=== PATIENT | male | born 1970 | race African-American/Black ===

== ENCOUNTER 2023-07-08 16:07 | Inpatient (IN) | payer MEDICAID, OTHER ==
[~2023-07-08] VITALS: Ht 177.8 cm; Wt 63.6 kg
[2023-07-08 16:44] LABS: Basophils # (auto) 0 10 ^3/uL (0-0.2); Basophils % (auto) 0.4 % (0.0-2.0); Eosinophils # (auto) 0 10 ^3/uL (0-0.8); Eosinophils % (auto) 0.1 % (0.0-7.0); Hematocrit 48.1 % (41.0-53.0); Hemoglobin 15.8 g/dL (13.5-17.5); Lymphocytes # (auto) 1.5 10 ^3/uL (0.4-5.4); Lymphocytes % (auto) 21.3 % (10.0-50.0); Mean Corpuscular Hemoglobin 31.2 pg (28.0-32.0); Mean Corpuscular Hgb Conc. 32.9 g/dL (32.0-36.0); Mean Corpuscular Volume 94.9 fL (80.0-100.0); Monocytes # (auto) 0.6 10 ^3/uL (0-1.3); Monocytes % (auto) 8.2 % (0.0-12.0); Neutrophils # (auto) 5.1 10 ^3/uL (1.6-8.6); Nucleated Red Blood Cells % 0.2 %; Red Blood Cells 5.07 10^6/uL (4.5-5.90); Red Cell Distribution Width 14.9 % (11.8-14.3); White Blood Cell 7.2 10^3/uL (4.4-10.8)
[2023-07-08 17:11] LABS: Alanine Aminotransferase 108 U/L (7-40); Albumin 3.9 g/dL (3.2-4.8); Alkaline Phosphatase 105 U/L (46-116); Anion Gap 10 (5-15); Aspartate Aminotransferase 64 U/L (13-40); BUN/Creatinine Ratio 11.5 (10.0-20.0); Blood Urea Nitrogen 14 mg/dL (9-23); Calcium 9.3 mg/dL (8.5-10.1); Carbon Dioxide 25 mmol/L (20-30); Chloride 105 mmol/L (98-107); Glucose 113 mg/dL (74-106); Potassium 4.4 mmol/L (3.5-5.1); Sodium 140 mmol/L (136-145)
[2023-07-08 17:12] LABS: Bilirubin, Total 0.9 mg/dL (0.2-1.0); INR 1.05 (0.9-1.15); Partial Thromboplastin Time 27.6 SEC (24.5-34.5); Total Protein 5.6 g/dL (5.7-8.2)
[2023-07-08 20:10] VITALS: PULSE 101; RESP 28; O2SAT 97
[2023-07-08] MEDS: ASPirin 81 mg TAB PO ONE (20:31)
[2023-07-08] MEDS: FUROSEMIDE 40 MG/4 ML VIAL IV ONE (20:33)
[2023-07-08] MEDS: HEPARIN SODIUM (PORCINE) 5000 UNITS/ML 1ML VIAL IV ONE (20:36)
[2023-07-08 20:41] LABS: Urine Bacteria NONE SEEN /hpf (None Seen); Urine Blood 1+ /uL (Negative); Urine Clarity Clear (Clear); Urine Color Yellow (Yellow); Urine Hyaline Cast FEW /lpf (0 - 2); Urine Protein, UAD 1+ (Negative); Urine Specific Gravity 1.026 (1.001-1.035); Urine WBC 1 /hpf (0 - 3); Urine pH 6.5 (5.0-8.0)
[2023-07-08] MEDS: HEPARIN DRIP/D5W 100UNITS/ML 250 ML IV SCH (20:42)
[2023-07-08] MEDS ORDERED: ONDANSETRON HCL 4 MG/2 ML VIAL IV PRN (22:00)
[2023-07-08] MEDS ORDERED: NITROGLYCERIN 0.4 MG SL TAB SL PRN (22:00)
[2023-07-08] MEDS ORDERED: TEMAZEPAM 15 MG CAP PO PRN (22:00)
[2023-07-08] MEDS ORDERED: CARVEDILOL 3.125 MG TAB PO SCH (22:00)
[2023-07-08] MEDS ORDERED: MORPHINE SULFATE INJ 2 MG/ml SYRG IV PRN (22:00)
[2023-07-08] MEDS ORDERED: ATORVASTATIN 20 MG TAB PO SCH (22:00)
[2023-07-08] MEDS ORDERED: ACETAMINOPHEN 325 MG TAB PO PRN (22:00)
[2023-07-08 22:35] LABS: Triglycerides 90 mg/dL (< 150)
[2023-07-08 22:36] LABS: LDL Cholesterol 128 mg/dL (< 100)
[2023-07-08 22:37] LABS: HDL Cholesterol 57 mg/dL (40-59)
[2023-07-08 22:38] LABS: Cholesterol 190 mg/dL (< 200)
[2023-07-09] VITALS (9 sets, daily range): BP systolic 133–143; BP diastolic 54–66; PULSE 72–96; RESP 14–20; TEMP 97.7–97.9; O2SAT 99–100
[2023-07-09] MEDS: ATORVASTATIN 20 MG TAB PO SCH ×2 (00:44→21:28)
[2023-07-09] MEDS: CARVEDILOL 3.125 MG TAB PO SCH (00:45)
[2023-07-09 03:59] LABS: Basophils # (auto) 0.1 10 ^3/uL (0-0.2); Basophils % (auto) 1.1 % (0.0-2.0); Eosinophils # (auto) 0 10 ^3/uL (0-0.8); Eosinophils % (auto) 0.1 % (0.0-7.0); Hematocrit 47.8 % (41.0-53.0); Hemoglobin 15.9 g/dL (13.5-17.5); Lymphocytes # (auto) 2.3 10 ^3/uL (0.4-5.4); Mean Corpuscular Hemoglobin 31.5 pg (28.0-32.0); Mean Corpuscular Hgb Conc. 33.2 g/dL (32.0-36.0); Mean Corpuscular Volume 94.8 fL (80.0-100.0); Monocytes # (auto) 0.9 10 ^3/uL (0-1.3); Monocytes % (auto) 10.8 % (0.0-12.0); Neutrophils # (auto) 4.7 10 ^3/uL (1.6-8.6); Nucleated Red Blood Cells % 0.2 %; Red Blood Cells 5.04 10^6/uL (4.5-5.90); Red Cell Distribution Width 14.5 % (11.8-14.3); White Blood Cell 7.9 10^3/uL (4.4-10.8)
[2023-07-09 04:13] LABS: INR 1.09 (0.9-1.15); Partial Thromboplastin Time 45.3 SEC (24.5-34.5); Prothrombin Time 11.4 sec (9.3-11.8)
[2023-07-09 04:16] LABS: Chloride 106 mmol/L (98-107); Potassium 4.6 mmol/L (3.5-5.1); Sodium 140 mmol/L (136-145)
[2023-07-09 04:17] LABS: Anion Gap 7 (5-15); Carbon Dioxide 27 mmol/L (20-30)
[2023-07-09 04:18] LABS: Calcium 9.3 mg/dL (8.5-10.1)
[2023-07-09 04:23] LABS: BUN/Creatinine Ratio 6.5 (10.0-20.0); Blood Urea Nitrogen 9 mg/dL (9-23); Glucose 93 mg/dL (74-106)
[2023-07-09 06:15] LABS: Giant Platelets Few; Platelet Estimate Adequate
[2023-07-09] MEDS: FUROSEMIDE 20 MG/2 ML VIAL IV SCH (07:02)
[2023-07-09] MEDS: ASPirin 81 mg TAB PO SCH (11:13)
[2023-07-09] MEDS: LISINOPRIL 10 MG TAB PO SCH (11:13)
[2023-07-09] MEDS ORDERED: ASPI-543 PO (11:40)
[2023-07-09] MEDS ORDERED: METO25TA5 PO (11:40)
[2023-07-09] MEDS ORDERED: LISI20TA56 PO (11:40)
[2023-07-09 12:22] LABS: Amphetamine Screen, Urine Neg (NEGATIVE)
[2023-07-09 12:23] LABS: Benzodiazephine Screen, Urine Neg (NEGATIVE)
[2023-07-09 12:24] LABS: Barbiturate Scree,Urine Neg (NEGATIVE); Cannabinoid Screen, Urine Pos (NEGATIVE); Cocaine Screen, Urine Neg (NEGATIVE); Opiate Scree,Urine Neg (NEGATIVE); Phencyclidine Screen, Urine Neg (NEGATIVE)
[2023-07-09] MEDS: IPRATROPIUM BROM 0.5 MG/2.5ML INH SOL NEB SCH (12:38)
[2023-07-09 12:42] LABS: INR 1.11 (0.9-1.15); Partial Thromboplastin Time 59.6 SEC (24.5-34.5); Prothrombin Time 11.6 sec (9.3-11.8)
[2023-07-09 19:04] LABS: INR 1.1 (0.9-1.15); Partial Thromboplastin Time 65.5 SEC (24.5-34.5); Prothrombin Time 11.5 sec (9.3-11.8)
[2023-07-09] MEDS ORDERED: diphenhdrAMINE HCL 50 MG/1 ML VL IV ONE (20:30)
[2023-07-10] VITALS (15 sets, daily range): BP systolic 128–140; BP diastolic 49–60; PULSE 57–93; RESP 17–20; TEMP 97.6–98; O2SAT 95–100
[2023-07-10 00:54] LABS: INR 1.12 (0.9-1.15); Partial Thromboplastin Time 64.2 SEC (24.5-34.5); Prothrombin Time 11.7 sec (9.3-11.8)
[2023-07-10 05:57] LABS: Basophils # (auto) 0 10 ^3/uL (0-0.2); Basophils % (auto) 0.8 % (0.0-2.0); Eosinophils # (auto) 0 10 ^3/uL (0-0.8); Eosinophils % (auto) 0.7 % (0.0-7.0); Hematocrit 46.2 % (41.0-53.0); Hemoglobin 15.1 g/dL (13.5-17.5); Lymphocytes # (auto) 1.8 10 ^3/uL (0.4-5.4); Mean Corpuscular Hemoglobin 31.2 pg (28.0-32.0); Mean Corpuscular Hgb Conc. 32.6 g/dL (32.0-36.0); Mean Corpuscular Volume 95.5 fL (80.0-100.0); Monocytes # (auto) 0.6 10 ^3/uL (0-1.3); Monocytes % (auto) 10.5 % (0.0-12.0); Neutrophils # (auto) 3.2 10 ^3/uL (1.6-8.6); Nucleated Red Blood Cells % 0.1 %; Red Blood Cells 4.84 10^6/uL (4.5-5.90); Red Cell Distribution Width 14.7 % (11.8-14.3); White Blood Cell 5.7 10^3/uL (4.4-10.8)
[2023-07-10] MEDS: FUROSEMIDE 20 MG TAB PO SCH (06:00)
[2023-07-10 06:06] LABS: Chloride 107 mmol/L (98-107); Potassium 3.9 mmol/L (3.5-5.1); Sodium 139 mmol/L (136-145)
[2023-07-10 06:07] LABS: Anion Gap 6 (5-15)
[2023-07-10 06:08] LABS: Calcium 8.9 mg/dL (8.7-10.4)
[2023-07-10 06:12] LABS: Glucose 93 mg/dL (74-106)
[2023-07-10 06:13] LABS: Blood Urea Nitrogen 18 mg/dL (9-23)
[2023-07-10 06:49] LABS: BUN/Creatinine Ratio 12.2 (10.0-20.0); Carbon Dioxide 26 mmol/L (20-30)
[2023-07-10] MEDS ORDERED: LIDOCAINE 2%HCL (LOCAL ANESTH.) INJ 20ML MDV ONE (07:39)
[2023-07-10] MEDS ORDERED: IODIXANOL 320MG/ML 100ML BTL IV ONE (07:39)
[2023-07-10] MEDS: VALSARTAN 80 MG TAB PO SCH (10:00)
[2023-07-10] MEDS: ASPirin 81 mg TAB PO SCH (12:18)
[2023-07-11] VITALS (14 sets, daily range): BP systolic 128–136; BP diastolic 50–59; PULSE 65–90; RESP 14–20; TEMP 97.5–98.2; O2SAT 96–100
[2023-07-11 06:09] LABS: Calcium 8.6 mg/dL (8.7-10.4); Chloride 105 mmol/L (98-107); Potassium 4.2 mmol/L (3.5-5.1); Sodium 139 mmol/L (136-145)
[2023-07-11 06:10] LABS: Anion Gap 5 (5-15); Carbon Dioxide 29 mmol/L (20-30)
[2023-07-11 06:15] LABS: Glucose 85 mg/dL (74-106)
[2023-07-11 06:16] LABS: Blood Urea Nitrogen 21 mg/dL (9-23); INR 1.03 (0.9-1.15); Magnesium 1.8 mg/dL (1.6-2.6); Partial Thromboplastin Time 27.5 SEC (24.5-34.5); Prothrombin Time 10.8 sec (9.3-11.8)
[2023-07-11 06:18] LABS: Basophils # (auto) 0 10 ^3/uL (0-0.2); Basophils % (auto) 0.6 % (0.0-2.0); Eosinophils # (auto) 0 10 ^3/uL (0-0.8); Hematocrit 45.5 % (41.0-53.0); Hemoglobin 14.9 g/dL (13.5-17.5); Lymphocytes # (auto) 1.6 10 ^3/uL (0.4-5.4); Lymphocytes % (auto) 32.9 % (10.0-50.0); Mean Corpuscular Hgb Conc. 32.9 g/dL (32.0-36.0); Mean Corpuscular Volume 94.3 fL (80.0-100.0); Monocytes # (auto) 0.6 10 ^3/uL (0-1.3); Monocytes % (auto) 12.9 % (0.0-12.0); Neutrophils # (auto) 2.5 10 ^3/uL (1.6-8.6); Neutrophils % (auto) 52.6 % (37.0-80.0); Nucleated Red Blood Cells % 0.2 %; Red Blood Cells 4.82 10^6/uL (4.5-5.90); Red Cell Distribution Width 14.4 % (11.8-14.3); White Blood Cell 4.8 10^3/uL (4.4-10.8)
[2023-07-11] MEDS: HEPARIN SODIUM (PORCINE) 5000 UNITS/ML 1ML VIAL IV ONE (07:54)
[2023-07-11] MEDS: EMPAGLIFLOZIN 10 MG TAB PO SCH (10:21)
[2023-07-11] MEDS: MAGNESIUM SULFATE 1GM/100ML 100 ML IV SCH (10:32)
[2023-07-11 15:00] LABS: INR 1.04 (0.9-1.15); Partial Thromboplastin Time 29.1 SEC (24.5-34.5); Prothrombin Time 10.9 sec (9.3-11.8)
[2023-07-11] MEDS: MAGNESIUM OXIDE 400 MG TAB PO SCH (22:47)
[2023-07-12] VITALS (10 sets, daily range): BP systolic 124–133; BP diastolic 44–70; PULSE 64–83; RESP 16–18; TEMP 97.4–98.8; O2SAT 96–100
[2023-07-12 07:07] LABS: Chloride 107 mmol/L (98-107); Potassium 4.4 mmol/L (3.5-5.1); Sodium 137 mmol/L (136-145)
[2023-07-12 07:08] LABS: Anion Gap 6 (5-15); Carbon Dioxide 24 mmol/L (20-30)
[2023-07-12 07:09] LABS: Calcium 8.6 mg/dL (8.7-10.4)
[2023-07-12 07:13] LABS: BUN/Creatinine Ratio 7.9 (10.0-20.0); Blood Urea Nitrogen 11 mg/dL (9-23); Glucose 95 mg/dL (74-106)
[2023-07-12 07:14] LABS: Magnesium 2.3 mg/dL (1.6-2.6)
[2023-07-12] MEDS ORDERED: CAR3125T OR (09:30)
[2023-07-12] MEDS ORDERED: ATO40T PO (09:30)
[2023-07-12] MEDS ORDERED: ASPI-325 PO (09:30)
[2023-07-12] MEDS ORDERED: FURO1TAB33 PO (09:30)
[2023-07-12] MEDS ORDERED: VALS1TAB58 PO (09:30)
[2023-07-12] MEDS ORDERED: EMPA1TAB PO (09:30)
== END 2023-07-12 13:55 | disposition home or self-care (01) | DRG 133 ==
LOC: ER 16:07 → TELE 22:05 → TELE-CENTR 07-09 10:00
PROVIDERS: ADMIT Nurse Practitioner; ATTEND Internal Medicine Geriatric Medicine
DX: J96.21 Acute and chronic respiratory failure with hypoxia (principal); I21.A1 Myocardial infarction type 2; I50.43 Acute on chronic combined systolic (congestive) and diastolic (congestive) heart failure; N17.9 Acute kidney failure, unspecified; I13.0 Hypertensive heart and chronic kidney disease with heart failure and stage 1 through stage 4 chronic kidney disease, or unspecified chronic kidney disease; I44.0 Atrioventricular block, first degree; E78.5 Hyperlipidemia, unspecified; I08.0 Rheumatic disorders of both mitral and aortic valves; J84.9 Interstitial pulmonary disease, unspecified; N18.9 Chronic kidney disease, unspecified; Z79.899 Other long term (current) drug therapy; Z87.891 Personal history of nicotine dependence
CPT/HCPCS: 36415; 71046; 80048; 80053; 80061; 80307; 81001; 82306; 82607; 83735; 83880; 84443; 84484; 85025; 85379; 85610; 85730; 93005; 93306; 94640; 99291; G0378; Q9967

== ENCOUNTER 2024-08-08 10:24 | Inpatient (IN) | payer MEDICAID ==
[~2024-08-08] VITALS: Ht 175.3 cm; Wt 66.4 kg
[2024-08-08] VITALS (15 sets, daily range): BP systolic 124–158; BP diastolic 52–83; PULSE 55–87; RESP 14–20; TEMP 97.8–98.3; O2SAT 96–100
[~2024-08-08 10:24] MED LIST: ASPI-325 PO; ATOR-507 PO; CARV-214 OR; EMPA1TAB PO; FURO1TAB33 PO; VALS1TAB58 PO
--- NOTE | 2024-08-08 10:40 | ED.PDOC ---
History of Present Illness HPI Comments 53M presents to the Er w/ prior Hx of CHF, High Lipids and HTN which all may be associated to the c/c of left sided CP. Pt reports on the CP starting at 0330 this morning which is non radiating. Pt currently has a pain type of a 0/10 due from taking aspirin prior to arrival to ED. Social Hx of Marijuana use, but denies tobacco and alcohol use. Denies chills, fever, N/V/D, SOB or no other associated symptom's, modifiers, recent injuries or sick contacts at this time. Time Seen by MD: 10:30 Primary Care Provider: [facility] Reviewed Notes: Nurses Notes, Medications, Allergies Allergies: Coded Allergies: NO KNOWN ALLERGIES (Unverified , 07/08/23) Home Meds Active Scripts Furosemide (Lasix) 20 Mg Tb, 1 TAB PO DAILY, #30 TAB 5 Refills Prov:AGUEDA ESCAMILLA MD 07/12/23 Carvedilol (COREG) 3.125 Mg Tab, 3.125 MG OR BID for 30 Days, #60 TAB 5 Refills Prov:AGUEDA ESCAMILLA MD 07/12/23 Valsartan (Valsartan) 160 Mg Tab, 160 MG PO DAILY for 30 Days, #30 TAB 5 Refills Prov:AGUEDA ESCAMILLA MD 07/12/23 Empagliflozin (Jardiance) 10 Mg Tab, 10 MG PO DAILY for 30 Days, #30 TAB 5 Refills Prov:AGUEDA ESCAMILLA MD 07/12/23 Atorvastatin Calcium (Lipitor) 40 Mg Tab, 1 TAB PO DAILY, #30 TAB 5 Refills Prov:AGUEDA ESCAMILLA MD 07/12/23 Aspirin (Aspirin Low Dose) 81 Mg Tab, 81 MG PO DAILY for 2 Days, #2 TAB Prov:AGUEDA ESCAMILLA MD 07/12/23 Information Source: Patient Mode of Arrival: Ambulatory Severity: Moderate Timing: Hours Duration: Since onset, Hours Prehospital treatment: Other (Aspirin) Past Medical History PAST MEDICAL HISTORY: CHF, High Lipids, HTN Surgical History: Denies all surgeries Family History Family History: Reviewed,noncontributory to illness, Unknown Social History Smoker: Non-Smoker Alcohol: Denies ETOH Use Drugs: Marijuana Lives In: Home Constitutional: denies: chills, diaphoresis, fatigue, fever, malaise, sweats, weakness, others EENTM: denies: blurred vision, double vision, ear bleeding, ear discharge, ear drainage, ear pain, ear ringing, eye pain, eye redness, hearing loss, mouth pain, mouth swelling, nasal discharge, nose bleeding, nose congestion, nose pain, photophobia, tearing, throat pain, throat swelling, voice changes, others Respiratory: denies: cough, hemoptysis, orthopnea, SOB at rest, shortness of breath, SOB with excertion, stridor, wheezing, others Cardiovascular: reports: chest pain; denies: dizzy spells, diaphoresis, Dyspnea on exertion, edema, irregular heart beat, left arm pain, lightheadedness, palpitations, PND, syncope, others Gastrointestinal: denies: abdomen distended, abdominal pain, blood streaked bowels, constipated, diarrhea, dysphagia, difficulty swallowing, hematemesis, melena, nausea, poor appetite, poor fluid intake, rectal bleeding, rectal pain, vomiting, others Genitourinary: denies: burning, dysuria, flank pain, frequency, hematuria, incontinence, penile discharge, penile sore, pain, testicle pain, testicle swelling, urgency, others Neurological: denies: dizziness, fainting, headache, left sided numbness, left sided weakness, numbness, paresthesia, pre-existing deficit, right sided numbness, right sided weakness, seizure, speech problems, tingling, tremors, weakness, others Musculoskeletal: denies: back pain, gout, joint pain, joint swelling, muscle pain, muscle stiffness, neck pain, others Integumetry: denies: bruises, change in color, change in hair/nails, dryness, laceration, lesions, lumps, rash, wounds, others Allergic/Immunocompromised: denies: Difficulty Healing, Frequent Infections, Hives, Itching, others Hematologic/Lymphatic: denies: anemia, blood clots, easy bleeding, easy bruising, swollen glands, others Endocrine: denies: excessive hunger, excessive sweating, excessive thirst, excessive urination, flushing, intolerance to cold, intolerance to heat, unexplained weight gain, unexplained weight loss, others Psychiatric: denies: anxiety, bipolar disorder, depression, hopeless, panic disorder, schizophrenia, sleepless, suicidal, others All Other Systems: Reviewed and Negative Physical Exam General Appearance: Moderate Distress, Normal HEENT: Normal ENT Inspection, Pharynx Normal, TMs Normal Neck: Full Range of Motion, Non-Tender, Normal, Normal Inspection Respiratory: Chest Non-Tender, Lungs Clear, No Accessory Muscle Use, No Respiratory Distress, Normal Breath Sounds Cardiovascular: No Edema, No JVD, No Murmur, No Gallop, Normal Peripheral Pulses, Regular Rate/Rhythm Breast Exam: Deferred Gastrointestinal: No Organomegaly, Non Tender, No Pulsatile Mass, Normal Bowel Sounds, Soft Genitalia: Deferred Pelvic: Deferred Rectal: Deferred Extremities: No calf tenderness, Normal capillary refill, Normal inspection, Normal range of motion, Non-tender, No pedal edema Musculoskeletal : Apperance: Normal Neurologic: Alert, client service executive II-XII nml as Tested, No Motor Deficits, Normal Affect, Normal Mood, No Sensory Deficits Cerebellar Function: Normal Reflexes: Normal Skin: Dry, Normal Color, Warm Peripheral Pulses: 3+ Radial (R), 3+ Radial (L) Lymphatic: No Adenopathy Was a procedure done? Was a procedure done?: No Differential Dx Considerations may include: Hypertension Electrolyte imbalance X-Ray, Labs, Meds, VS Vital Signs Date Time Temp Pulse Resp B/P (MAP) Pulse Ox O2 Delivery O2 Flow Rate FiO2 08/08/24 11:30 166/70 08/08/24 11:17 84 08/08/24 10:58 75 18 96 Room Air 08/08/24 10:58 98.2 75 18 166/70 (102) 96 98.2 08/08/24 10:50 Room Air* 0 21 08/08/24 10:38 98.1 87 19 153/52 (85) 99 98.1 08/08/24 10:31 87 Lab Test 08/08/24 11:18 08/08/24 10:26 Range/Units Troponin I High Sensitivity 937 *H 676 *H </=54 ng/L White Blood Count 12.8 H 4.4-10.8 10^3/uL Red Blood Count 4.76 4.5-5.90 10^6/uL Hemoglobin 14.7 13.5-17.5 g/dL Hematocrit 44.6 41.0-53.0 % Mean Corpuscular Volume 93.7 80.0-100.0 fL Mean Corpuscular Hemoglobin 30.8 28.0-32.0 pg Mean Corpuscular Hemoglobin Concent 32.9 32.0-36.0 g/dL Red Cell Distribution Width 14.6 H 11.8-14.3 % Platelet Count 249 140-450 10^3/uL Mean Platelet Volume 9.4 6.9-10.8 fL Neutrophils (%) (Auto) 79.0 37.0-80.0 % Lymphocytes (%) (Auto) 14.2 10.0-50.0 % Monocytes (%) (Auto) 5.9 0.0-12.0 % Eosinophils (%) (Auto) 0.1 0.0-7.0 % Basophils (%) (Auto) 0.8 0.0-2.0 % Neutrophils # (Auto) 10.1 H 1.6-8.6 10 ^3/uL Lymphocytes # (Auto) 1.8 0.4-5.4 10 ^3/uL Monocytes # (Auto) 0.8 0-1.3 10 ^3/uL Eosinophils # (Auto) 0 0-0.8 10 ^3/uL Basophils # (Auto) 0.1 0-0.2 10 ^3/uL Nucleated Red Blood Cells 0.1 % Sodium Level 141 136-145 mmol/L Potassium Level 4.3 3.5-5.1 mmol/L Chloride Level 104 98-107 mmol/L Carbon Dioxide Level 34 H 20-31 mmol/L Anion Gap 3 L 5-15 Blood Urea Nitrogen 12 9-23 mg/dL Creatinine 1.40 H 0.700-1.30 mg/dL Glomerular Filtration Rate Calc 60 >90 mL/min BUN/Creatinine Ratio 8.6 L 10.0-20.0 Serum Glucose 110 H 74-106 mg/dL Calcium Level 10.2 8.7-10.4 mg/dL Current Medications Medications (Trade) Dose Ordered Sig/Sonali Route Start Time Stop Time Status Last Admin Nitroglycerin (Ntrostat Sublingual) 0.4 mg ONCE ONCE SL 08/08/24 10:45 08/08/24 10:46 DC 08/08/24 11:30 Enoxaparin Sodium (Lovenox) 70 mg ONCE ONCE SC 08/08/24 11:30 08/08/24 11:31 DC 08/08/24 11:30 Patient alert. Complaining of chest pain. Vitals stable. Answering all questions. Was given nitro. EKG reviewed does show LVH. Spoke with Cardiology. Cardiac marker elevated. Was given Lovenox. WBC slightly elevated. Counseled patient on effects of smoking cigarettes for 15 minutes. Possible COPD. Was given Rocephin. Explained to the patient. Continue cardiac monitoring. Time of 1ST Reevaluation: 11:00 Reevaluation 1ST: Unchanged Patient Education/Counseling: Diagnosis, Treatment, Prognosis Family Education/Counseling: No Family Present Departure 1 Departure Time of Disposition: 12:05 Impression: Primary Impression: NSTEMI (non-ST elevated myocardial infarction) Disposition: ADMITTED INPATIENT Admit to: Med Surg Condition: Guarded Critical Care Note Critical Care Time?: Yes (90 min-critical care time only) Critical care comment: EKG changes spoke with Cardiology continue monitoring Stability Stability form required: No Heart Score Heart Score: Heart Score Response (Comments) Value History Slightly Suspicious 0 EKG Repolarization Disturb 1 Age 45-64 1 Risk Factors >3 or Hx ASHD 2 Troponin >3 x's Normal limit 2 Total 6 I personally scribed for THOMPSON ALEMAN MD ([email or web address]) on 08/08/24 at 10:40. Electronically submitted by Prabhjot Brown ([email or web address]). THOMPSON ALEMAN MD Aug 08, 2024 10:40
--- NOTE | 2024-08-08 10:45 | ECG ---
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
[2024-08-08 10:52] LABS: Basophils # (auto) 0.1 10 ^3/uL (0-0.2); Basophils % (auto) 0.8 % (0.0-2.0); Eosinophils # (auto) 0 10 ^3/uL (0-0.8); Eosinophils % (auto) 0.1 % (0.0-7.0); Hematocrit 44.6 % (41.0-53.0); Hemoglobin 14.7 g/dL (13.5-17.5); Lymphocytes # (auto) 1.8 10 ^3/uL (0.4-5.4); Lymphocytes % (auto) 14.2 % (10.0-50.0); Mean Corpuscular Hemoglobin 30.8 pg (28.0-32.0); Mean Corpuscular Hgb Conc. 32.9 g/dL (32.0-36.0); Mean Corpuscular Volume 93.7 fL (80.0-100.0); Monocytes # (auto) 0.8 10 ^3/uL (0-1.3); Monocytes % (auto) 5.9 % (0.0-12.0); Neutrophils # (auto) 10.1 10 ^3/uL (1.6-8.6); Nucleated Red Blood Cells % 0.1 %; Platelet Count (auto) 249 10^3/uL (140-450); Red Blood Cells 4.76 10^6/uL (4.5-5.90); Red Cell Distribution Width 14.6 % (11.8-14.3); White Blood Cell 12.8 10^3/uL (4.4-10.8)
[2024-08-08 10:57] LABS: Chloride 104 mmol/L (98-107); Potassium 4.3 mmol/L (3.5-5.1); Sodium 141 mmol/L (136-145)
[2024-08-08] MEDS: IODIXANOL 320MG/ML 100ML BTL IV ONE ×2 (10:57→11:04)
[2024-08-08 10:58] LABS: Anion Gap 3 (5-15); Calcium 10.2 mg/dL (8.7-10.4)
[2024-08-08] MEDS: NITROGLYCERIN 0.4 MG SL TAB SL ONE (11:01)
[2024-08-08 11:03] LABS: BUN/Creatinine Ratio 8.6 (10.0-20.0); Blood Urea Nitrogen 12 mg/dL (9-23)
[2024-08-08 11:07] LABS: Carbon Dioxide 34 mmol/L (20-31); Glucose 110 mg/dL (74-106)
--- NOTE | 2024-08-08 11:08 | DVH ---
XY CHEST PORTABLE, HISTORY: sob COMPARISON: None None TECHNICAL DATA: 1 view of the chest was obtained. FINDINGS: Lines and tubes: None Cardiomediastinal silhouette: normal Pulmonary vasculature: normal Lung expansion: normal Lung airspace: normal Lung interstitium: normal Pleura: normal Pneumothorax: no Bones: Unremarkable Other: no IMPRESSION: No acute intrathoracic abnormality.
[2024-08-08] MEDS: MIDAZOLAM HCL 2MG/2ML 2ml VIAL (1mg/ml) ONE (11:26)
[2024-08-08] MEDS: VERAPAMIL 2.5MG/ML INJ 2ML VIAL IV ONE (11:28)
[2024-08-08] MEDS: LIDOCAINE 2%HCL (LOCAL ANESTH.) INJ 20ML MDV ONE (11:28)
[2024-08-08] MEDS: ENOXAPARIN SOD 80 MG/0.8ML SYRINGE SC ONE (11:30)
[2024-08-08] MEDS: fentaNYL CITRATE 100 MCG/2 ML VL ONE (11:31)
[2024-08-08] MEDS: SODIUM CHL 0.9% 0 ML ONE (11:36)
[2024-08-08] MEDS: ANGIOMAX 250 MG VIAL IV ONE (11:36)
--- NOTE | 2024-08-08 12:05 | DVHINCON2 ---
Date Seen: Aug 08, 2024 Referring Physician MD Mitali Reason for Consultation NSTEMI History of Present Illness This is a pleasant 53-year-old man who presented to the emergency room with a chief complaint of chest pain at 0300. The patient reports he awoke in the middle of the night and progressively developed chest pain described as substernal, radiating to the left inframammary area, throbbing in nature, and n ot associated with any other symptoms. States he self administered ASA 324 mg at home. He underwent an initial 12 lead electrocardiogram revealing a sinus rhythm with ischemia to multiple leads an initial troponin level in the 600s ng/L. A subsequent 12 lead electrocardiogram revealed drastic progressive ST changes mostly to anteroseptal leads with reciprocal changes to inferolateral leads with code STEMI being activated. Significant medical history includes congestive heart failure diagnosed on 2020 after receiving COVID-19 vaccine, hypertension, dyslipidemia, chronic kidney disease, cannabinoid use, and remote history of tobacco use quitting 4 years with a total pack-history x 10-years. Past Medical History Past medical history reviewed. No other significant than mentioned above. Past Surgical History Denies any past medical history. Family History: Diabetes mellitus G8 MOTHER Hypertension G8 MOTHER Family History Cousin with myocardial infarction at 61 years old and mother with diabetes/hypertension. Social History Admits to cannabinoid use. Quit smoking tobacco four years ago. Denies the use of active tobacco or alcohol use. Allergies: Coded Allergies: NO KNOWN ALLERGIES (Unverified , 07/08/23) Home Meds Active Scripts Furosemide (Lasix) 20 Mg Tb, 1 TAB PO DAILY, #30 TAB 5 Refills Prov:AGUEDA ESCAMILLA MD 07/12/23 Carvedilol (COREG) 3.125 Mg Tab, 3.125 MG OR BID for 30 Days, #60 TAB 5 Refills Prov:AGUEDA ESCAMILLA MD 07/12/23 Valsartan (Valsartan) 160 Mg Tab, 160 MG PO DAILY for 30 Days, #30 TAB 5 Refills Prov:AGUEDA ESCAMILLA MD 07/12/23 Empagliflozin (Jardiance) 10 Mg Tab, 10 MG PO DAILY for 30 Days, #30 TAB 5 Refills Prov:AGUEDA ESCAMILLA MD 07/12/23 Atorvastatin Calcium (Lipitor) 40 Mg Tab, 1 TAB PO DAILY, #30 TAB 5 Refills Prov:AGUEDA ESCAMILLA MD 07/12/23 Aspirin (Aspirin Low Dose) 81 Mg Tab, 81 MG PO DAILY for 2 Days, #2 TAB Prov:AGUEDA ESCAMILLA MD 07/12/23 Home Meds Home medications reviewed. Review of Systems Constitutional: No symptom reported Ears, Nose, & Throat: No symptom reported Eyes: No symptom reported Neurological: No symptoms reported Pulmonary/Respiratory: No symptom reported Cardiovascular: Chest pain Gastrointestinal: No symptom reported Genitourinary: No symptom reported Musculoskeletal: No symptom reported Skin: No symptom reported Psychiatric: No symptom reported Endocrine: No symptom reported Hemotologic/Lymphatic: No symptom reported Vital Signs Vital Signs Date Time Temp Pulse Resp B/P (MAP) Pulse Ox O2 Delivery O2 Flow Rate FiO2 08/08/24 11:30 166/70 08/08/24 11:17 84 08/08/24 10:58 18 96 Room Air 08/08/24 10:58 98.2 98.2 08/08/24 10:50 0 21 Physical Exam General Appearance: Cooperative. Well developed. Well nourished. In no acute distress Head Exam: Normal inspection Neck Exam: Normal inspection. Non-tender. Normal alignment Pulmonary/Respiratory: Chest non-tender. Clear bilateral breath sounds Cardiovascular/Chest: Regular rate and rhythm. S1, S2. Anteroseptal wall STEMI with reciprocal inferolateral changes. No murmurs. No JVD. Peripheral Pulses: 2+ Radial (R). 2+ Radial (L). 2+ Pedal (R). 2+ Pedal (L) Abdominal Exam: Normal bowel sounds. Soft. Nontender. No hepatospenomegaly. No masses Ankle Exam: Negative ankle edema Lower extremities: Negative lower extremity edema Neuro/Mental Status: A&O x4. Coherent Thoughts/Psych: Normal thought pattern. Anxious Appearance: In no acute distress Skin Exam: Normal inspection. Normal color. Warm. Dry Labs/Diagnostic Data Labs Test 08/08/24 11:18 08/08/24 10:26 Range/Units Troponin I High Sensitivity 937 *H </=54 ng/L White Blood Count 12.8 H 4.4-10.8 10^3/uL Red Blood Count 4.76 4.5-5.90 10^6/uL Hemoglobin 14.7 13.5-17.5 g/dL Hematocrit 44.6 41.0-53.0 % Mean Corpuscular Volume 93.7 80.0-100.0 fL Mean Corpuscular Hemoglobin 30.8 28.0-32.0 pg Mean Corpuscular Hemoglobin Concent 32.9 32.0-36.0 g/dL Red Cell Distribution Width 14.6 H 11.8-14.3 % Platelet Count 249 140-450 10^3/uL Mean Platelet Volume 9.4 6.9-10.8 fL Neutrophils (%) (Auto) 79.0 37.0-80.0 % Lymphocytes (%) (Auto) 14.2 10.0-50.0 % Monocytes (%) (Auto) 5.9 0.0-12.0 % Eosinophils (%) (Auto) 0.1 0.0-7.0 % Basophils (%) (Auto) 0.8 0.0-2.0 % Neutrophils # (Auto) 10.1 H 1.6-8.6 10 ^3/uL Lymphocytes # (Auto) 1.8 0.4-5.4 10 ^3/uL Monocytes # (Auto) 0.8 0-1.3 10 ^3/uL Eosinophils # (Auto) 0 0-0.8 10 ^3/uL Basophils # (Auto) 0.1 0-0.2 10 ^3/uL Nucleated Red Blood Cells 0.1 % Sodium Level 141 136-145 mmol/L Potassium Level 4.3 3.5-5.1 mmol/L Chloride Level 104 98-107 mmol/L Carbon Dioxide Level 34 H 20-31 mmol/L Anion Gap 3 L 5-15 Blood Urea Nitrogen 12 9-23 mg/dL Creatinine 1.40 H 0.700-1.30 mg/dL Glomerular Filtration Rate Calc 60 >90 mL/min BUN/Creatinine Ratio 8.6 L 10.0-20.0 Serum Glucose 110 H 74-106 mg/dL Calcium Level 10.2 8.7-10.4 mg/dL Assessment Acute anterior ST-elevation myocardial infarction Chronic decompensated HFrEF with LVEF at 30% Hypertension Dyslipidemia CKD stage II Cannabinoid use Remote hx of tobacco use Plan/Recommendation (Dr. Enriquez) Code STEMI activated. The patient will be undergoing an emergent left cardiac catheterization with coronary angiogram with Dr. Suggs. Risks and benefits of the procedure were discussed with the patient who agrees to proceed with intervention. All questions answered. In the meantime, obtain a transthoracic echocardiogram to assess cardiac function. Patient self administered ASA 324 mg at home. Further recommendations per clinical course. Thank you for allowing us to participate in this patient's care. Please call if you have any questions or concerns. Critical care time: 45 min. This medical document was created using an electronic medical record system with voice recognition software and computerized dictation system. Although this document has been carefully reviewed, there might still be some phonetic and typographical errors. Occasional wrong-word or ``sound-alike substitutions may have occurred due to the inherent limitations of voice recognition software. These areas are purely typographical due to imperfections of the software programs and do not reflect any compromise in the patient's medical care. Please read the chart carefully and recognize, using context, where these substitutions have occurred. Plan discussed with: Patient, Other NYHA Physical activity limitations: NA Date of Service: Aug 08, 2024 Billing Provider: PEGGY VALDEZ Cardiology Common Codes: 32132-CGSALEVC CARE 30-74 MIN PEGGY VALDEZ Aug 08, 2024 12:05
[2024-08-08] MEDS ORDERED: hydrALAZINE HCL 20 MG/ML VL IV PRN (12:30)
[2024-08-08 12:49] LABS: Magnesium 2.1 mg/dL (1.6-2.6)
[2024-08-08] MEDS ORDERED: MORPHINE SULFATE INJ 2 MG/ml SYRG IV PRN (13:30)
[2024-08-08] MEDS ORDERED: NITROGLYCERIN 0.4 MG SL TAB SL PRN (13:30)
--- NOTE | 2024-08-08 13:33 | ECG ---
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
--- NOTE | 2024-08-08 14:05 | DVHINCON2 ---
Date of service: Aug 08, 2024 Referring Physician MD Mitali Reason for Consultation STEMI History of Present Illness This is a 53 year old male with a PMH of congestive heart failure diagnosed in 2020 s/p receiving COVID 19 vaccine, hypertension, dyslipidemia, chronic kidney disease, cannabinoid use, and remote history of tobacco use quitting 4 years with a total pack-history x 10-years who presented to the ED with complaints of chest pain since 300 a.m, progressively worsening. Patient described as substernal, radiating to the left inframammary area, throbbing in nature, and not associated with any other symptoms. He self administered ASA 324 mg at home. The patients 12 lead EKG revealed sinus rhythm with ischemia to multiple leads. Subsequent 12 lead EKG revealed drastic progressive ST changes mostly to anteroseptal leads with reciprocal changes to inferolateral leads. Code STEMI was activated. Initial troponin level in the 600s ng/L. I seen and evaluated the patient in the ED. Advised for emergent cardiac cath. Patient will be admitted to the hospital. Family History: Diabetes mellitus G8 MOTHER Hypertension G8 MOTHER Allergies: Coded Allergies: NO KNOWN ALLERGIES (Unverified , 07/08/23) Home Meds Active Scripts Furosemide (Lasix) 20 Mg Tb, 1 TAB PO DAILY, #30 TAB 5 Refills Prov:AGUEDA ESCAMILLA MD 07/12/23 Carvedilol (COREG) 3.125 Mg Tab, 3.125 MG OR BID for 30 Days, #60 TAB 5 Refills Prov:AGUEDA ESCAMILLA MD 07/12/23 Valsartan (Valsartan) 160 Mg Tab, 160 MG PO DAILY for 30 Days, #30 TAB 5 Refills Prov:AGUEDA ESCAMILLA MD 07/12/23 Empagliflozin (Jardiance) 10 Mg Tab, 10 MG PO DAILY for 30 Days, #30 TAB 5 Refills Prov:AGUEDA ESCAMILLA MD 07/12/23 Atorvastatin Calcium (Lipitor) 40 Mg Tab, 1 TAB PO DAILY, #30 TAB 5 Refills Prov:AGUEDA ESCAMILLA MD 07/12/23 Aspirin (Aspirin Low Dose) 81 Mg Tab, 81 MG PO DAILY for 2 Days, #2 TAB Prov:AGUEDA ESCAMILLA MD 07/12/23 Current Medications Current Medications Medications (Trade) Dose Ordered Sig/Sonali Route PRN Reason Start Time Stop Time Status Last Admin Sacubitril/ Valsartan (Entresto 24-26 Mg tab) 0.5 tab BID PO 08/08/24 22:00 Carvedilol (Coreg Tablet) 6.25 mg Q12HR PO 08/08/24 22:00 Hydralazine HCl (Apresoline Injection) 10 mg Q6HP PRN IV SBP>150 08/08/24 12:30 Aspirin 81 mg DAILY PO 08/09/24 10:00 Atorvastatin Calcium (Lipitor) 40 mg HS PO 08/08/24 22:00 Nitroglycerin (Ntrostat Sublingual) 0.4 mg Q5MINP PRN SL FOR CHEST PAIN 08/08/24 13:30 Morphine Sulfate 2 mg Q30M PRN IV FOR CHEST PAIN 08/08/24 13:30 Review of Systems Constitutional: denies: chills, diaphoresis, fatigue, fever, malaise, sweats, weakness, others EENTM: denies: blurred vision, double vision, ear bleeding, ear discharge, ear drainage, ear pain, ear ringing, eye pain, eye redness, hearing loss, mouth pain, mouth swelling, nasal discharge, nose bleeding, nose congestion, nose pain, photophobia, tearing, throat pain, throat swelling, voice changes, others Respiratory: denies: cough, hemoptysis, orthopnea, SOB at rest, shortness of breath, SOB with excertion, stridor, wheezing, others Cardiovascular: reports: chest pain; denies: dizzy spells, diaphoresis, Dyspnea on exertion, edema, irregular heart beat, left arm pain, lightheadedness, palpitations, PND, syncope, others Gastrointestinal: denies: abdomen distended, abdominal pain, blood streaked bowels, constipated, diarrhea, dysphagia, difficulty swallowing, hematemesis, melena, nausea, poor appetite, poor fluid intake, rectal bleeding, rectal pain, vomiting, others Genitourinary: denies: burning, dysuria, flank pain, frequency, hematuria, incontinence, penile discharge, penile sore, pain, testicle pain, testicle swelling, urgency, others Neurological: denies: dizziness, fainting, headache, left sided numbness, left sided weakness, numbness, paresthesia, pre-existing deficit, right sided numbness, right sided weakness, seizure, speech problems, tingling, tremors, weakness, others Musculoskeletal: denies: back pain, gout, joint pain, joint swelling, muscle pain, muscle stiffness, neck pain, others Integumetry: denies: bruises, change in color, change in hair/nails, dryness, laceration, lesions, lumps, rash, wounds, others Allergic/Immunocompromised: denies: Difficulty Healing, Frequent Infections, Hives, Itching, others Hematologic/Lymphatic: denies: anemia, blood clots, easy bleeding, easy bruising, swollen glands, others Endocrine: denies: excessive hunger, excessive sweating, excessive thirst, excessive urination, flushing, intolerance to cold, intolerance to heat, unexplained weight gain, unexplained weight loss, others Psychiatric: denies: anxiety, bipolar disorder, depression, hopeless, panic disorder, schizophrenia, sleepless, suicidal, others All Other Systems: Reviewed and Negative Vital Signs Vital Signs Date Time Temp Pulse Resp B/P (MAP) Pulse Ox O2 Delivery O2 Flow Rate FiO2 08/08/24 11:30 166/70 08/08/24 11:17 84 08/08/24 10:58 18 96 Room Air 08/08/24 10:58 98.2 98.2 08/08/24 10:50 0 21 Physical Exam GENERAL: Awake, alert, oriented. LUNGS: Clear. CARDIOVASCULAR: Heart sounds are good. ABDOMEN: Soft. Labs/Diagnostic Data Labs Test 08/08/24 11:18 08/08/24 10:26 Range/Units Troponin I High Sensitivity 937 *H </=54 ng/L White Blood Count 12.8 H 4.4-10.8 10^3/uL Red Blood Count 4.76 4.5-5.90 10^6/uL Hemoglobin 14.7 13.5-17.5 g/dL Hematocrit 44.6 41.0-53.0 % Mean Corpuscular Volume 93.7 80.0-100.0 fL Mean Corpuscular Hemoglobin 30.8 28.0-32.0 pg Mean Corpuscular Hemoglobin Concent 32.9 32.0-36.0 g/dL Red Cell Distribution Width 14.6 H 11.8-14.3 % Platelet Count 249 140-450 10^3/uL Mean Platelet Volume 9.4 6.9-10.8 fL Neutrophils (%) (Auto) 79.0 37.0-80.0 % Lymphocytes (%) (Auto) 14.2 10.0-50.0 % Monocytes (%) (Auto) 5.9 0.0-12.0 % Eosinophils (%) (Auto) 0.1 0.0-7.0 % Basophils (%) (Auto) 0.8 0.0-2.0 % Neutrophils # (Auto) 10.1 H 1.6-8.6 10 ^3/uL Lymphocytes # (Auto) 1.8 0.4-5.4 10 ^3/uL Monocytes # (Auto) 0.8 0-1.3 10 ^3/uL Eosinophils # (Auto) 0 0-0.8 10 ^3/uL Basophils # (Auto) 0.1 0-0.2 10 ^3/uL Nucleated Red Blood Cells 0.1 % Sodium Level 141 136-145 mmol/L Potassium Level 4.3 3.5-5.1 mmol/L Chloride Level 104 98-107 mmol/L Carbon Dioxide Level 34 H 20-31 mmol/L Anion Gap 3 L 5-15 Blood Urea Nitrogen 12 9-23 mg/dL Creatinine 1.40 H 0.700-1.30 mg/dL Glomerular Filtration Rate Calc 60 >90 mL/min BUN/Creatinine Ratio 8.6 L 10.0-20.0 Serum Glucose 110 H 74-106 mg/dL Hemoglobin A1c 5.5 <5.7 % A1C Calcium Level 10.2 8.7-10.4 mg/dL Magnesium Level 2.1 1.6-2.6 mg/dL B-Type Natriuretic Peptide 704.58 0-100 pg/mL Triglycerides Level 79 < 150 mg/dL Cholesterol Level 183 < 200 mg/dL LDL Cholesterol 90 < 100 mg/dL HDL Cholesterol 80 H 40-59 mg/dL Thyroid Stimulating Hormone (TSH) 0.81 0.55-4.78 uIU/mL Assessment Acute anterior ST-elevation myocardial infarction. Chronic decompensated HFrEF with LVEF at 30%. Hypertension. Dyslipidemia. CKD stage II. Cannabinoid use. Plan/Recommendation I agree with your ongoing assessment and care of plan. Emergent left cardiac catheterization with coronary angiogram. Risks and benefits of the procedure were discussed with the patient who agrees to proceed with intervention. Transthoracic echocardiogram to assess cardiac function. Aspirin, Lipitor. Coreg. Morphine for pain management. Entresto. Additional plan as per the hospital course. Critical care time of 90 minutes provided to include time spent evaluation of patient at bedside, when appropriate patient/family education for diagnosis, treatment plan, review of pertinent medical information and discussion of care with specialty providers and PCP. Plan discussed with: Patient TERESA PLAZA MD Aug 08, 2024 14:05
[2024-08-08] MEDS ORDERED: ACETAMINOPHEN 325 MG TAB PO PRN (16:30)
[2024-08-08] MEDS ORDERED: DOCUSATE SOD 100 MG CAP PO PRN (16:30)
[2024-08-08] MEDS ORDERED: ONDANSETRON HCL 4 MG/2 ML VIAL IV PRN (16:30)
[2024-08-08] MEDS ORDERED: FURO20TA4 PO (16:30)
[2024-08-08] MEDS ORDERED: HYDROcodone-ACET 5/325MG TAB PO PRN (16:30)
[2024-08-08] MEDS: SODIUM CHLORIDE 0.9% 1,000 ML IV ONE (17:20)
--- NOTE | 2024-08-08 17:23 | DVHHP2 ---
History of Present Illness Reason for Visit: Chest pain History of Present Illness Jason Muñoz is a 53-year-old male with past medical history of hypertension, CHF, and hyperlipidemia, who came in with complaints of chest pain. Patient states his pain began about 0300 when he woke up to use the bathroom. His pain continued to worsen. He took his blood pressure medications and ASA without any relief prompting him to come to the ER. Patient was seen here in June of 2023 for chest pain. That is when he was diagnosed with CHF, hypertension, and hyperlipidemia. He then moved to [place] and recently moved back. He is in the process of establishing a primary care provider again. Cardiovascular: CHF, HTN, hyperipidemia Past Surgical History: None Smoke: No ALCOHOL: none Drugs: Marijuana Lives: with Family Domestic Violence: Neg Review of Systems Constitutional: No: Fever, Chills, Sweats, Weakness, Malaise, Other Eyes: No: Pain, Vision change, Conjunctivae inflammation, Eyelid inflammation, Other, Redness ENT: No: Ear pain, Ear discharge, Nose pain, Nose discharge, Nose congestion, Mouth pain, Mouth swelling, Throat pain, Throat swelling, Other Respiratory: No: Cough, Dry, Shortness of breath, SOB with excertion, Wheezing, Hemoptysis, Pleuritic Pain, Sputum, Wheezing, Other Cardiovascular: Chest Pain; No: Palpitations, Orthopnea, Paroxysmal Noc. Dyspnea, Edema, Lt Headedness, Other Gastrointestinal: No: Nausea, Vomiting, Abdominal Pain, Diarrhea, Constipation, Melena, Hematochezia, Other Genitourinary: No Dysuria, No Frequency, No Incontinence, No Hematuria, No Retention, No Other Musculoskeletal: No: other, neck pain, shoulder pain, arm pain, back pain, hand pain, leg pain, foot pain Skin: No: Rash, Lesions, Jaundice, Bruising, Other Neurological: No: Weakness, Numbness, Incoordination, Change in speech, Confusion, Seizures, Other Allergies: Coded Allergies: NO KNOWN ALLERGIES (Unverified , 07/08/23) Medications Current Medications Medications Dose Ordered Sig/Sonali Route Start Time Stop Time Status Last Admin Dose Admin Sacubitril/ Valsartan 0.5 tab BID PO 08/08/24 22:00 Carvedilol 6.25 mg Q12HR PO 08/08/24 22:00 Hydralazine HCl 10 mg Q6HP PRN IV 08/08/24 12:30 Aspirin 81 mg DAILY PO 08/09/24 10:00 Atorvastatin Calcium 40 mg HS PO 08/08/24 22:00 Nitroglycerin 0.4 mg Q5MINP PRN SL 08/08/24 13:30 Morphine Sulfate 2 mg Q30M PRN IV 08/08/24 13:30 Sodium Chloride 10 ml Q8HR IV 08/08/24 22:00 UNV Acetaminophen/ Hydrocodone Bitart 1 tab Q4HP PRN PO 08/08/24 16:30 UNV Ondansetron HCl 4 mg Q4HP PRN IV 08/08/24 16:30 UNV Docusate Sodium 100 mg BIDPRN PRN PO 08/08/24 16:30 UNV Acetaminophen 650 mg Q6HP PRN PO 08/08/24 16:30 UNV Exam Vital Signs Vital Signs Date Time Temp Pulse Resp B/P (MAP) Pulse Ox O2 Delivery O2 Flow Rate FiO2 08/08/24 11:30 166/70 08/08/24 11:17 84 08/08/24 10:58 18 96 Room Air 08/08/24 10:58 98.2 98.2 08/08/24 10:50 0 21 General Appearance: Alert, Oriented X3, Cooperative, moderate distress HEENT: Atraumatic, PERRLA Respiratory: Clear to auscultation, Normal air movement Cardiovascular: Regular rate, Normal S1, Normal S2, No murmurs Abdominal: Normal bowel sounds, Soft, No tenderness, No hepatospenomegaly Extremities: No clubbing, No cyanosis, No edema, Normal pulses Skin: No rashes, No breakdown, No significant lesion Neuro: Normal gait, Normal speech, Strength at 5/5 X4 ext Psych/Mental Status: Mental status NL, Mood NL Labs/Xrays Labs Test 08/08/24 14:06 08/08/24 10:26 Range/Units Troponin I High Sensitivity 1930 *H </=54 ng/L White Blood Count 12.8 H 4.4-10.8 10^3/uL Red Blood Count 4.76 4.5-5.90 10^6/uL Hemoglobin 14.7 13.5-17.5 g/dL Hematocrit 44.6 41.0-53.0 % Mean Corpuscular Volume 93.7 80.0-100.0 fL Mean Corpuscular Hemoglobin 30.8 28.0-32.0 pg Mean Corpuscular Hemoglobin Concent 32.9 32.0-36.0 g/dL Red Cell Distribution Width 14.6 H 11.8-14.3 % Platelet Count 249 140-450 10^3/uL Mean Platelet Volume 9.4 6.9-10.8 fL Neutrophils (%) (Auto) 79.0 37.0-80.0 % Lymphocytes (%) (Auto) 14.2 10.0-50.0 % Monocytes (%) (Auto) 5.9 0.0-12.0 % Eosinophils (%) (Auto) 0.1 0.0-7.0 % Basophils (%) (Auto) 0.8 0.0-2.0 % Neutrophils # (Auto) 10.1 H 1.6-8.6 10 ^3/uL Lymphocytes # (Auto) 1.8 0.4-5.4 10 ^3/uL Monocytes # (Auto) 0.8 0-1.3 10 ^3/uL Eosinophils # (Auto) 0 0-0.8 10 ^3/uL Basophils # (Auto) 0.1 0-0.2 10 ^3/uL Nucleated Red Blood Cells 0.1 % Sodium Level 141 136-145 mmol/L Potassium Level 4.3 3.5-5.1 mmol/L Chloride Level 104 98-107 mmol/L Carbon Dioxide Level 34 H 20-31 mmol/L Anion Gap 3 L 5-15 Blood Urea Nitrogen 12 9-23 mg/dL Creatinine 1.40 H 0.700-1.30 mg/dL Glomerular Filtration Rate Calc 60 >90 mL/min BUN/Creatinine Ratio 8.6 L 10.0-20.0 Serum Glucose 110 H 74-106 mg/dL Hemoglobin A1c 5.5 <5.7 % A1C Calcium Level 10.2 8.7-10.4 mg/dL Magnesium Level 2.1 1.6-2.6 mg/dL B-Type Natriuretic Peptide 704.58 0-100 pg/mL Triglycerides Level 79 < 150 mg/dL Cholesterol Level 183 < 200 mg/dL LDL Cholesterol 90 < 100 mg/dL HDL Cholesterol 80 H 40-59 mg/dL Thyroid Stimulating Hormone (TSH) 0.81 0.55-4.78 uIU/mL XY CHEST PORTABLE, FINDINGS: Lines and tubes: None Cardiomediastinal silhouette: normal Pulmonary vasculature: normal Lung expansion: normal Lung airspace: normal Lung interstitium: normal Pleura: normal Pneumothorax: no Bones: Unremarkable Other: no IMPRESSION: No acute intrathoracic abnormality. Assessment/Plan Assessment/Plan Assessment: STEMI, Elevated BNP, Hypertension, CHF, Hyperlipidemia, Plan: Admit to Tele, Cardiology consult, Left heart cath, ACS protocol, Lipid panel, A1c, TSH, ECHO, Home medications reconciled Plan discussed with: Patient My Orders Orders - ANA MARIE Procedure Category Date Status Time Code Status CODE 08/08/24 Transmitted 16:24 Sodium Chloride Lock PHA 08/08/24 Logged (Saline Lock Ns) 22:00 Hydrocodone-Acet PHA 08/08/24 Logged 5/325mg Tab ([place] 16:30 Ondansetron Hcl PHA 08/08/24 Logged (Zofran) 16:30 Docusate Sodium PHA 08/08/24 Logged Capsule (Colace 16:30 Condition: Serious CHAMP 08/08/24 In Process 16:24 Acetaminophen Tablet PHA 08/08/24 Logged (Tylenol Tablet) 16:30 Furosemide Tablet PHA 08/09/24 Verified (Lasix Tablet) 10:00 Date of Service: Aug 08, 2024 Billing Provider: ANA MARIE Common Visit Codes: [id number] INP/OBS CARE (HIGH) ANA MARIE Aug 08, 2024 17:23
[2024-08-08] MEDS: cefTRIAXone 1GM/50ML D5W 50 ML IV ONE ×2 (17:25)
[2024-08-08] MEDS: ATORVASTATIN 20 MG TAB PO SCH (22:17)
[2024-08-08] MEDS: CARVEDILOL 3.125 MG TAB PO SCH (22:18)
[2024-08-08] MEDS: SODIUM CHLOR 0.9% PF (SALINE LOCK) 10ML VIAL/SYR IV SCH (22:19)
[2024-08-08] MEDS: SACUBITRIL-VALSARTAN 24mg/26mg TAB PO SCH (22:19)
[2024-08-09 01:00] VITALS: BP 153/50; PULSE 58; RESP 17; TEMP 98; O2SAT 100
[2024-08-09 05:00] VITALS: BP 147/55; PULSE 74; RESP 16; TEMP 97.9; O2SAT 99
--- NOTE | 2024-08-09 05:49 | DVHOP ---
DATE OF SURGERY: 08/08/2024 TECHNIQUE PERFORMED: * Emergency case. * Insertion of a 6-Maori arterial line in the right radial artery. * Conscious sedation. * Left heart catheterization. * Left ventriculogram. * [place] selective left and right coronary angiography. COMPLICATIONS: None. ASSISTANTS: Assisted by our staff over here. INDICATIONS: The patient with severe chest pain 10/10, abnormal EKG with ST segment depression II, III, aVF, V4-V6. DESCRIPTION OF PROCEDURE: In a standard manner, the patient's right iliac thoroughly cleaned with soap. The patient was given nitroglycerin and verapamil in right arterial line. Subsequently, JL 3.5 right groin angio done. With the help of pigtail catheter, complete left heart catheterization had been done. The left ventriculogram was done in the right oblique view with total of 20 mL of dye. Post-LV gram, the left ventriculogram performed with the help of pull-through technique. Aortic pressure was also performed. Procedure completed. IMPRESSION: * Normal left main. * Normal large left anterior descending artery. * Normal diagonal artery. * Normal circumflex artery. * Normal large dominant right coronary artery. Ejection fraction of only 15%. CONCLUSION: This patient have an end-stage dilated cardiomyopathy, ejection fraction only 15%. Coronary arteries are normal. PLAN OF ACTION: Advised for beta-anh, Ananth inhibitor and Lasix and the potassium and he will need a followup echocardiography every three months and urine for drug screening and if ejection fraction does not improve more than 35%, then he will need implantable cardioverter defibrillator in the next 6 months. MD ANDRESSA Munson TID: [id number] RECEIPT: [id number] MTDAntionette
[2024-08-09 06:55] LABS: Anion Gap 7 (5-15); Carbon Dioxide 30 mmol/L (20-31); Chloride 104 mmol/L (98-107); Potassium 3.8 mmol/L (3.5-5.1); Sodium 141 mmol/L (136-145)
[2024-08-09 06:56] LABS: Calcium 9.3 mg/dL (8.7-10.4)
[2024-08-09 07:01] LABS: BUN/Creatinine Ratio 13.4 (10.0-20.0); Blood Urea Nitrogen 17 mg/dL (9-23); Glucose 84 mg/dL (74-106)
[2024-08-09 07:05] LABS: Basophils # (auto) 0 10 ^3/uL (0-0.2); Basophils % (auto) 0.5 % (0.0-2.0); Eosinophils # (auto) 0 10 ^3/uL (0-0.8); Eosinophils % (auto) 0.3 % (0.0-7.0); Hematocrit 43.3 % (41.0-53.0); Lymphocytes # (auto) 2.5 10 ^3/uL (0.4-5.4); Lymphocytes % (auto) 26.4 % (10.0-50.0); Mean Corpuscular Hemoglobin 32.2 pg (28.0-32.0); Mean Corpuscular Hgb Conc. 34.7 g/dL (32.0-36.0); Mean Corpuscular Volume 92.7 fL (80.0-100.0); Monocytes # (auto) 0.8 10 ^3/uL (0-1.3); Monocytes % (auto) 8.5 % (0.0-12.0); Neutrophils % (auto) 64.3 % (37.0-80.0); Nucleated Red Blood Cells % 0.1 %; Platelet Count (auto) 217 10^3/uL (140-450); Red Blood Cells 4.68 10^6/uL (4.5-5.90); Red Cell Distribution Width 14.3 % (11.8-14.3); White Blood Cell 9.3 10^3/uL (4.4-10.8)
[2024-08-09 08:00] VITALS: PULSE 52; PULSE 57; RESP 18; O2SAT 96
[2024-08-09 09:00] VITALS: BP 141/71; PULSE 74; RESP 18; TEMP 98; O2SAT 100
--- NOTE | 2024-08-09 09:51 | DVHPN2 ---
Consult Progress Note Date Seen: Aug 09, 2024 Subjective Review of Systems: CVS:Normal, RESPIRATORY:Normal, NEURO:Normal Objective vital signs Vital Sign Date Time Temp Pulse Resp B/P (MAP) Pulse Ox O2 Delivery O2 Flow Rate FiO2 08/09/24 05:00 97.9 74 16 147/55 (85) 99 97.9 08/08/24 20:00 Room Air* 0 21 Total Intake and Output 08/08/24 08/08/24 08/09/24 15:00 23:00 07:00 Intake Total 220 ml 120 ml Balance 220 ml 120 ml medications Current Medications Medications Dose Ordered Sig/Sonali Route Start Time Stop Time Status Last Admin Dose Admin Sacubitril/ Valsartan 0.5 tab BID PO 08/08/24 22:00 08/08/24 22:19 0.5 TAB Carvedilol 6.25 mg Q12HR PO 08/08/24 22:00 08/08/24 22:18 6.25 MG Hydralazine HCl 10 mg Q6HP PRN IV 08/08/24 12:30 Aspirin 81 mg DAILY PO 08/09/24 10:00 Atorvastatin Calcium 40 mg HS PO 08/08/24 22:00 08/08/24 22:17 40 MG Nitroglycerin 0.4 mg Q5MINP PRN SL 08/08/24 13:30 Morphine Sulfate 2 mg Q30M PRN IV 08/08/24 13:30 Sodium Chloride 10 ml Q8HR IV 08/08/24 22:00 08/09/24 06:00 10 ML Acetaminophen/ Hydrocodone Bitart 1 tab Q4HP PRN PO 08/08/24 16:30 Ondansetron HCl 4 mg Q4HP PRN IV 08/08/24 16:30 Docusate Sodium 100 mg BIDPRN PRN PO 08/08/24 16:30 Acetaminophen 650 mg Q6HP PRN PO 08/08/24 16:30 Furosemide 20 mg DAILY PO 08/09/24 10:00 Examination: GENERAL:Normal, LUNGS:Normal, CVS:Normal, NEURO:Normal laboratory and microbiology Laboratory Tests 08/09/24 06:20 Test 08/09/24 06:20 Range/Units Serum Glucose 84 74-106 mg/dL Problem List/Assessment/Plan Problem List/Assessment/Plan Myocardial infarction with non-obstructive coronary arteries Chronic non-ischemic dilated compensated HFrEF with LVEF at 15% Hypertension Dyslipidemia CKD stage II Cannabinoid use Remote hx of tobacco use Plan/Recommendation (Dr. Suggs) The patient presented with a myocardial infarction with non-obstructive coronaries and a ventriculography revealing an EF of 15%. Initiate full GDMT for HFrEF and uptitrate as tolerated. Transition from home valsartan to Entresto therapy. Discontinue ASA and statin. Offered a LifeVest for secondary prevention of sudden cardiac which he declines at this time. Follow-up with a primary logistics analytics manager within 1-2 weeks post-discharge. If no improvement on left ventricular function with three months of GDMT for CHF, the patient may be a candidate for an ICD. Strongly counseled on medical compliance. We will sign off at this time. Kindly call if in need to re-consult. Thank you for allowing us to participate in this patient's care. This medical document was created using an electronic medical record system with voice recognition software and computerized dictation system. Although this document has been carefully reviewed, there might still be some phonetic and typographical errors. Occasional wrong-word or ``sound-alike substitutions may have occurred due to the inherent limitations of voice recognition software. These areas are purely typographical due to imperfections of the software programs and do not reflect any compromise in the patient's medical care. Please read the chart carefully and recognize, using context, where these substitutions have occurred. Plan discussed with: Patient, Other Date of Service: Aug 09, 2024 Billing Provider: PEGGY VALDEZ Cardiology Common Codes: [id number] INP/OBS CARE(Mod) PEGGY VALDEZ Aug 09, 2024 09:51
[2024-08-09] MEDS ORDERED: ASPirin 81 mg TAB PO SCH (10:00)
[2024-08-09] MEDS: FUROSEMIDE 20 MG TAB PO SCH (10:20)
[2024-08-09] MEDS: SPIRONOLACTONE 25 MG TAB PO SCH (10:20)
[2024-08-09] MEDS: EMPAGLIFLOZIN 10 MG TAB PO SCH (10:21)
[2024-08-09 13:00] VITALS: BP 127/73; PULSE 75; RESP 18; TEMP 98.1; O2SAT 97
[2024-08-09] MEDS ORDERED: SPIR25TA PO (15:34)
[2024-08-09] MEDS ORDERED: SACU1TAB PO (15:34)
--- NOTE | 2024-08-09 15:38 | DVHDS2 ---
Discharge Summary Date of Admission Aug 08, 2024 at 13:23 Date of Discharge: Aug 09, 2024 Admitting Diagnosis STEMI Labs/Diagnostic Data: Laboratory Results Test 08/09/24 06:20 08/08/24 14:06 08/08/24 10:26 White Blood Count 9.3 10^3/uL (4.4-10.8) Red Blood Count 4.68 10^6/uL (4.5-5.90) Hemoglobin 15.0 g/dL (13.5-17.5) Hematocrit 43.3 % (41.0-53.0) Mean Corpuscular Volume 92.7 fL (80.0-100.0) Mean Corpuscular Hemoglobin 32.2 pg (28.0-32.0) Mean Corpuscular Hemoglobin Concent 34.7 g/dL (32.0-36.0) Red Cell Distribution Width 14.3 % (11.8-14.3) Platelet Count 217 10^3/uL (140-450) Mean Platelet Volume 9.7 fL (6.9-10.8) Neutrophils (%) (Auto) 64.3 % (37.0-80.0) Lymphocytes (%) (Auto) 26.4 % (10.0-50.0) Monocytes (%) (Auto) 8.5 % (0.0-12.0) Eosinophils (%) (Auto) 0.3 % (0.0-7.0) Basophils (%) (Auto) 0.5 % (0.0-2.0) Neutrophils # (Auto) 6.0 10 ^3/uL (1.6-8.6) Lymphocytes # (Auto) 2.5 10 ^3/uL (0.4-5.4) Monocytes # (Auto) 0.8 10 ^3/uL (0-1.3) Eosinophils # (Auto) 0 10 ^3/uL (0-0.8) Basophils # (Auto) 0 10 ^3/uL (0-0.2) Nucleated Red Blood Cells 0.1 % Sodium Level 141 mmol/L (136-145) Potassium Level 3.8 mmol/L (3.5-5.1) Chloride Level 104 mmol/L (98-107) Carbon Dioxide Level 30 mmol/L (20-31) Anion Gap 7 (5-15) Blood Urea Nitrogen 17 mg/dL (9-23) Creatinine 1.27 mg/dL (0.700-1.30) Glomerular Filtration Rate Calc 68 mL/min (>90) BUN/Creatinine Ratio 13.4 (10.0-20.0) Serum Glucose 84 mg/dL (74-106) Calcium Level 9.3 mg/dL (8.7-10.4) Troponin I High Sensitivity 1930 ng/L (</=54) Hemoglobin A1c 5.5 % A1C (<5.7) Magnesium Level 2.1 mg/dL (1.6-2.6) B-Type Natriuretic Peptide 704.58 pg/mL (0-100) Triglycerides Level 79 mg/dL (< 150) Cholesterol Level 183 mg/dL (< 200) LDL Cholesterol 90 mg/dL (< 100) HDL Cholesterol 80 mg/dL (40-59) Thyroid Stimulating Hormone (TSH) 0.81 uIU/mL (0.55-4.78) Other Laboratory Tests 08/09/24 06:20 Brief Hx & Hospital Course: History of Present Illness Jason Muñoz is a 53-year-old male with past medical history of hypertension, CHF, and hyperlipidemia, who came in with complaints of chest pain. Patient states his pain began about 0300 when he woke up to use the bathroom. His pain continued to worsen. He took his blood pressure medications and ASA without any relief prompting him to come to the ER. Patient was seen here in June of 2023 for chest pain. That is when he was diagnosed with CHF, hypertension, and hyperlipidemia. He then moved to [place] and recently moved back. He is in the process of establishing a primary care provider again. Course of hospitalization: Patient was taken to the cardiac catheterization lab and was found to have no CAD, amenable to intervention. Patient was found to have estimated ejection fraction of around 15% on ventriculogram. Echocardiogram has preliminary results of approximately 30%. Patient was noted to be hypertensive. Patient will be started on GDM T, with patient to stop taking valsartan and switch to Entresto, as well as adding spironolactone. Patient was to follow up with his PCP in 1-2 weeks. At the current time he denies having any more symptoms and has been ambulating without any difficulty. Physical examination General: Alert and Oriented x3. No acute distress. Well-nourished. Eyes: EOMI. Anicteric. HENT: Moist mucous membranes. Lungs: Clear to auscultation bilaterally. No accessory muscle use. Cardiovascular: Regular rate and rhythm. No murmur. No JVD. Abdomen: Soft, non-tender and non-distended. No palpable masses. Extremities: No edema. Non-tender. Skin: No rashes or lesions. Warm. Neurologic: No focal neurological deficits. CN II-XII grossly intact, but not individually tested. Psychiatric: Cooperative. Appropriate mood and affect. Total time spent with patient discussing and formulating plan of care: 35 minutes. This medical document was created using an electronic medical record system with [employer] dictation system. Although this document has been carefully reviewed, there may still be some phonetic and typographical errors. These areas are purely typographical due to imperfections of the software programs, and do not reflect any compromise in the patient's medical care. Consults/Reason for consult Cardiology: NSTEMI Operations or Procedures Left heart catheterization on 08/08/2024. Condition at Discharge: Guarded Final Diagnosis/Problems List STEMI Impression: -acute on chronic systolic and diastolic heart failure -accelerated hypertension -dyslipidemia Discharge Disposition: Home Discharge Instruct/Medications Diet: Cardiac 2g Na,low cholest Activity: No Restrictions, As Tolerated Follow Up/Referral: Follow up with PCP in 1-2 weeks Medications: Entresto one tablet p.o. b.i.d. Spironolactone 25 mg p.o. daily Stop valsartan Continue all previous home medications 36 Discharge Statement: "Patient was advised to return to the ER or call 911 if any headaches, dizziness, shortness of breath, chest pain, abdominal pain, bleeding, fevers, or worsening of medical condition. Patient was counseled about treatment plan, medications, possible side effects, patientverbalized understanding. All questions were answered to the best of my ability. This discharge took greater then 30 minutes in planning, reviewing documentation, counseling the patient, and discussing with other team members." ASSESSMENT ASSESSMENT Assessment STEMI Date of Service: Aug 09, 2024 Billing Provider: GERHARD GOVEA NP Common Visit Codes: 11670-JEU/OBS DISCH DAY >30min GERHARD GOVEA NP Aug 09, 2024 15:38
[2024-08-09 16:11] VITALS: BP 141/71; PULSE 74; RESP 18; TEMP 98; O2SAT 96
--- NOTE | 2024-08-09 22:10 | DVHPN2 ---
Progress Note - Dictate Date Seen: Aug 09, 2024 Medical Necessity Reason Pt with a Central, PICC or Fol: No Subjective Patient was seen and evaluated in follow up. Patient is s/p emergency left heart catheterization, inaja selective left and right coronary angiography. This patient have an end-stage dilated cardiomyopathy, ejection fraction only 15%. Coronary arteries are normal. Advised for beta-anh, Ananth inhibitor and Lasix and the potassium and he will need a followup echocardiography every three months and urine for drug screening and if ejection fraction does not improve more than 35%, then he will need implantable cardioverter defibrillator in the next 6 months. Telemetry reviewed. vital signs Vital Sign Date Time Temp Pulse Resp B/P (MAP) Pulse Ox O2 Delivery O2 Flow Rate FiO2 08/09/24 16:11 98.0 74 18 96 08/09/24 13:00 127/73 (91) 08/09/24 08:00 Room Air* 0 21 Total Intake and Output 08/08/24 08/08/24 08/09/24 15:00 23:00 07:00 Intake Total 220 ml 120 ml Balance 220 ml 120 ml objective GENERAL: Awake, alert, oriented. LUNGS: Clear. CARDIOVASCULAR: Heart sounds are good. ABDOMEN: Soft. laboratory and microbiology Laboratory Tests 08/09/24 06:20 Test 08/09/24 06:20 Range/Units Serum Glucose 84 74-106 mg/dL Problem List Acute anterior ST-elevation myocardial infarction. Chronic decompensated HFrEF with LVEF at 30%. Hypertension. Dyslipidemia. CKD stage II. Cannabinoid use. Assessment/Plan Continued all current supportive medical care. Aspirin, Lipitor. Coreg. Morphine for pain management. Entresto. Additional plan as per the hospital course. Plan discussed with: Patient TERESA PLAZA MD Aug 09, 2024 22:09
--- NOTE | 2024-08-10 12:43 | DVHSR ---
APPROVED REPORT EXAM: Two-dimensional and M-mode echocardiogram with Doppler and color Doppler. Blood Pressure: 166/70 mmHg INDICATION STEMI RISK FACTORS Height: 5'9", Weight: 152 DIMENSIONS LVDd6.9 (3.8-5.7cm)LA (2D)4.5 (1.9-4.0cm)Aortic Root3.8 (2.0-3.7cm) LVDs6.3 (2.5-4.0cm)LA (MM) (1.9-4.0cm)Aortic Cusp Exc2.3 (1.5-2.0cm) EF (%) 20.0 (55-70%)Rt. Atrium4.3 (1.9-4.0cm)Asc. Aorta3.1 cm IVSd0.8 (0.7-1.1cm)RV (D)3.1 (1.8-2.4cm) PWd1.8 (0.7-1.1cm) Mitral Valve MitralMitral Stenosis E wave0.93m/sMV Mean GR.mmHg A wave0.97m/sMV Peak GR.mmHg E/A ratio1.02D MVAcm2 DECEL [id number] 1/2 Timems Aortic Valve Aortic ValveAortic Stenosis V11.05m/Kristin Mean GR.9mmHg V22.07m/Kristin Peak GR.17mmHg LVOT Diameter2.8 (1.8-2.4cm)Doppler AVA3.12cm2 AI P 1/2 Vruc557.40ms Pulmonic Valve V20.77m/s Conclusion Left ventricle is dilated Left ventricular systolic function is severely depressed Ejection fraction is estimated at 25% There is severe aortic regurgitation There is moderate to severe mitral regurgitation There is mild tricuspid regurgitation There is no pericardial effusion
--- NOTE | 2024-08-10 13:22 | ECG ---
[facility] [place] Test Date: 2024-08-08 Test Time: 11:17:12 Pat Name: KIMBERLY DUQUE Department: ER Room: 0294T B Gender: M Cleaner: VIVIANA : 1970 Requested By: THOMPSON ALEMAN Order Number: [id number] Reading MD: Celio Rivers Measurements Intervals [place] Rate: 84 P: 74 IN: 249 QRS: 95 QRSD: 100 T: -85 QT: 404 QTc: 478 Interpretive Statements Sinus rhythm Prolonged IN interval Biatrial enlargement Borderline right axis deviation LVH with secondary repolarization abnormality ST depr, consider ischemia, inferior leads Anterior ST elevation, probably due to LVH Borderline prolonged QT interval Electronically Signed On 08-10-2024 22:33:18 PDT by Celio Rivers Please click the below link to view image of tracing.
== END 2024-08-09 18:00 | disposition home or self-care (01) | DRG 190 ==
LOC: ER 10:24 → OVERFLOW 13:23 → TELE-WESTW 17:20
PROVIDERS: ADMIT Nurse Practitioner Acute Care; ATTEND Nurse Practitioner Acute Care
PROC: B211YZZ Fluoroscopy of Multiple Coronary Arteries using Other Contrast (ICD-10-PCS; principal; 2024-08-08)
PROC: B215YZZ Fluoroscopy of Left Heart using Other Contrast (ICD-10-PCS; 2024-08-08)
PROC: 4A023N7 Measurement of Cardiac Sampling and Pressure, Left Heart, Percutaneous Approach (ICD-10-PCS; 2024-08-08)
PROC: 03HY32Z Insertion of Monitoring Device into Upper Artery, Percutaneous Approach (ICD-10-PCS; 2024-08-08)
DX: I21.09 ST elevation (STEMI) myocardial infarction involving other coronary artery of anterior wall (principal); I50.43 Acute on chronic combined systolic (congestive) and diastolic (congestive) heart failure; I13.0 Hypertensive heart and chronic kidney disease with heart failure and stage 1 through stage 4 chronic kidney disease, or unspecified chronic kidney disease; E78.5 Hyperlipidemia, unspecified; I42.0 Dilated cardiomyopathy; N18.2 Chronic kidney disease, stage 2 (mild); F12.90 Cannabis use, unspecified, uncomplicated; Z79.84 Long term (current) use of oral hypoglycemic drugs; Z79.899 Other long term (current) drug therapy; Z79.82 Long term (current) use of aspirin; Z83.3 Family history of diabetes mellitus; Z82.49 Family history of ischemic heart disease and other diseases of the circulatory system; Z87.891 Personal history of nicotine dependence
CPT/HCPCS: 36415; 71045; 80048; 80061; 83036; 83735; 83880; 84443; 84484; 85025; 93005; 93306; 93458; 96372; 99152; 99291; 99292; G0378; J2250; Q9967